=== PATIENT | female | born 1935 | race Caucasian/White ===

== ENCOUNTER 2023-05-17 21:37 | Inpatient (IN) | payer OTHER, SELFPAY ==
[2023-05-17 15:00] VITALS: BP 125/87
[2023-05-17 15:35] LABS: % Basophils 0.3 % (0-2); % Immature Granulocytes 0.2 % (0-0.5); % Lymphocytes 9.2 % (20.5-51.1); % Neutrophils 83.3 % (42.2-75.2); Absolute Lymphocytes 0.6 10^3/uL (1.2-3.4); Absolute Monocytes 0.4 10^3/uL (0.1-0.6); Absolute Neutrophils 5.2 10^3/uL (1.4-6.5); Hematocrit 41.1 % (37.0-47.0); Hemoglobin 13.9 g/dL (12.0-16.0); Mean Corp Hgb Conc. 33.8 g/dL (33.0-37.0); Mean Corpuscular Hgb 30.8 pg (27.0-31.0); Mean Corpuscular Volume 90.9 fL (81.0-99.0); Mean Platelet Volume 9.8 fL (7.4-10.4); Nucleated Red Blood Cells % 0 %; Platelet Count 141 10^3/uL (130-400); Red Blood Cell Count 4.52 10^6/uL (4.20-5.40); Red Cell Dist. Width 13.9 % (11.5-14.5); White Blood Cell Count 6.3 10^3/uL (4.8-10.8)
[2023-05-17 15:44] LABS: ALT (SGPT) 20 U/L (0-35); AST (SGOT) 29 U/L (14-36); Albumin 3.6 g/dl (3.5-5.0); Alkaline Phosphatase 94 U/L (38-126); Blood Urea Nitrogen 17 mg/dl (7-17); Calcium 8.7 mg/dl (8.4-10.2); Carbon Dioxide 27 mmol/L (22-30); Chloride 104 mmol/L (98-107); Glucose 278 mg/dl (70-99); Potassium 4.2 mmol/L (3.5-5.1); Sodium 137 mmol/L (135-145); Total Bilirubin 0.9 mg/dl (0.2-1.3); eGFR > 60.00
[2023-05-17 15:55] LABS: NT-proBNP 2380 pg/ml; Troponin I 0.026 ng/ml
[2023-05-17 18:11] VITALS: BP 132/76
[2023-05-17] MEDS: DECADRON 6 MG IV (19:04)
[2023-05-17] MEDS: DUONEB 3 ML INH (19:04)
--- NOTE | 2023-05-17 19:10 | ED.GENMED ---
History of Present Illness
General
Chief Complaint: Breathing Problem
Source: patient and spouse
Exam Limitations: none
Time Seen by Provider: 05/17/23 18:13
Travel History
Have you had any contact with someone who has COVID-19?: No
Do you have any symptoms of coronavirus? Fever > 100 degrees, chills, cough, shortness of breath, sore throat, loss of taste or smell, muscle aches, or headache?: No
History of Present Illness
History of Present Illness:
87-year-old female increase shortness of breath and cough progressive over the last week. returned from [place] with some cough. However symptoms are progressively worse for his . No pleuritic pain no high fever. Shortness of breath
is moderate in nature
Past History
Past History
ED Past Medical History: Arrthythmia (Atrial fibrillation), Valvular disease (Valvular heart disease) and Other (PNA)
ED Past Surgical History: Appendectomy
Social History
Tobacco: Non-smoker
Alcohol: None
Personal:
Living: with family
Review of Systems
Review of Systems
All Other Systems: Not applicable
Constitutional: Denies fever
Respiratory: Reports cough; Denies hemoptysis
ABD/GI: Reports no symptoms
Phy Exam
Physical Exam
Physical Exam:
GENERAL: Alert and oriented in no apparent distress
EYE: Orbits normal.
NECK: Supple
ENT: Pharynx without erythema
CARDIAC: Irregular irregular. Tachycardic
LUNGS: Occasional coarse cough. Diffuse expiratory wheezing and basilar rales.
ABDOMEN: Soft, without focal tenderness or distention
NEUROLOGICAL: Alert and oriented , grossly non-focal
SKIN: Warm and dry, no rash or lesion, no discoloration, skin intact.
MUSCULOSKELETAL: No edema,no deformity.Good color
PSYCH: Normal and appropriate interaction.
Scores
Heart Failure Risk
Heart Failure Risk Score: Yes
History of Stroke or TIA: No
History of intubation for respiratory distress: No
Heart rate on ED arrival >/= 110: Yes
SaO2 <90% on arrival on room air: No
HR >/=110 during 3min walk test (or too ill to perform test): Yes
ECG has acute ischemic changes: No
Urea >/=12mmol/L (BUN 33.6mg/dL): No
Serum CO2>/=35mmol/L: No
Troponin I or T elevated to [place] Level (0.4mg/dL): No
NT-proBNP >/=5,000ng/L (5,000pg/ml): No
HF Risk Score: 2
Admission Status: MEDIUM RISK 9.2% Consider observation or discharge to home with homecare & f/u visit to PCP/Coin Machine Supervisor, or SNF for treatment
Course
Orders/Labs/Results
Orders:
Orders
05/17/23 15:02
Electrocardiogram (*1) Urgent
Reason for Study: Shortness of Breath
05/17/23 15:03
EKG- Treatment ONCE
05/17/23 15:18
CMP [Comprehensive Metabolic Panel] Urgent
Complete Blood Count/With Diff Urgent
NT-proBNP Urgent
Troponin I Urgent
05/17/23 18:23
COVID-19 Antigen Urgent
Source: Nasal Swab
Influenza A+B Rapid Molecular Urgent
SALIMA Source: Nasal Swab
Specimen Description:
Dexamethasone Sod Phosphate [Decadron] 6 mg IV NOW STA
Ipratropium/Albuterol Sulfate [Duoneb] 3 ml INH R NOW ONE
CXR2 [CR Chest - 2 Views ] Urgent
Comment:
Reason For Exam: cough sob
05/17/23 19:20
Furosemide [Lasix] 40 mg IV ONCE ONE
Abnormal Lab Results
05/17/23
15:18
Absolute Lymphs (auto) 0.6 L 10^3/uL
(1.2-3.4)
Neutrophils % 83.3 H %
(42.2-75.2)
Lymphocytes % 9.2 L %
(20.5-51.1)
Glucose 278 H mg/dl
(70-99)
05/17/23 15:18
05/17/23 15:18
Vital Signs
Initial and Last Documented VS:
Initial Vital Signs
Temp Pulse Resp BP Pulse Ox
98.9 F 114 16 125/87 94
05/17/23 15:00 05/17/23 15:00 05/17/23 15:00 05/17/23 15:00 05/17/23 15:00
Last Documented Vital Signs
Temp Pulse Resp BP Pulse Ox
98.9 F 114 20 132/76 94
05/17/23 15:00 05/17/23 15:00 05/17/23 18:12 05/17/23 18:11 05/17/23 18:12
*Radiology
Radiology exam reviewed: radiology read reviewed (Possible mild CHF)
*Pulse Oximetry
Patient hypoxic: no
*EKG
Interpreted by ED Provider?: Yes
Interpretation: abnormal
Comparison EKG: changes noted
Heart Rate: 119
Rate: tachycardiac
Rhythm: a-fib
[place]: normal axis
Interval: normal interval
QRS Pattern: low voltage
Ischemia: non-specific ST changes
*Forest Technician Interpretation
Rate: tachycardiac
Interpretation: abnormal
Heart Rate: 115
*Critical Care Note
Total Time (30-74mins, 75-104mins- exclusive of procedures): Not Applicable
Data Reviewed
Review of Other/Old Records Reveals: Labs, Records, Testing and Discharge Summary
Update Note
Update Note:
Patient still with diffuse expiratory wheezing and mild tachypnea at rest. I feel this is mostly a respiratory infection but there may be a small component of CHF. Warrants inpatient management.
ED Attending Note
-
Portions of this chart may have been created with voice recognition software.� Occasional wrong word or��sound alike� substitutions may have occurred due to the inherent limitations of voice recognition software.
Discharge Plan
Departure
Prescriptions:
No Action
atorvastatin 40 MG tablet
40 mg PO QPM Qty: 30 0RF
metformin 500 MG tablet
500 mg PO BID@0800,1700 Qty: 60 0RF
acetaminophen 325 MG tablet
650 mg PO Q4HPRN PRN (Reason: mild pain) 0RF
metoprolol succinate 100 MG tablet extended release 24 hr
100 mg PO BID Qty: 60 0RF
thiamine HCl (vitamin B1) 100 MG tablet
100 mg PO DAILY Qty: 30 0RF
pantoprazole 40 MG tablet,delayed release (DR/EC)
40 mg PO DAILY Qty: 30 0RF
digoxin 0.125 MG tablet
0.125 mg PO NOON Qty: 30 0RF
furosemide 20 MG tablet
20 mg PO DAILY Qty: 30 0RF
lisinopril 2.5 MG tablet
2.5 mg PO BID Qty: 60 0RF
insulin aspart U-100 [Novolog FlexPen U-100 Insulin] 300 UNITS/3 ML insulin pen
5 units SC AC Qty: 5 0RF
apixaban [Eliquis] 5 MG tablet
5 mg PO BID Qty: 60 0RF
dapagliflozin propanediol [Farxiga] 10 MG tablet
10 mg PO DAILY Qty: 30 0RF
insulin glargine [Lantus Solostar U-100 Insulin] 300 UNITS/3 ML insulin pen
14 units SC HS Qty: 5 0RF
(DME) pen needle, diabetic [BD Ultra-Fine Micro Pen Needle] 1 EACH needle
1 ea MC ACHS Qty: 200 0RF
Rx Instructions:
BD ALBERTA 4mm pen needle
(DME) blood sugar diagnostic [OneTouch Verio test strips] 1 EACH strip
1 ea MC ACHS Qty: 200 0RF
(DME) lancets [OneTouch Delica Lancets] 1 EACH misc
1 ea MC ACHS Qty: 200 0RF
Referrals:
Alexa Ballard MD [Family Provider] -
Interventions
Interventions:
*ED COVID-19 Vaccine History Last Done: 05/17/23 15:00
[2023-05-17] MEDS: LASIX 40 MG IV (20:09)
--- NOTE | 2023-05-17 20:16 | HPS.HSE ---
Family Physician
-
Family Physician: Alexa Ballard
Chief Complaint
-
Cough / SOB
History of Present Illness
Patient is an 87y F with PMH significant for A-Fib, CHF and DM-II who presents to ED complaining of cough and SOB. Patient states that symptoms have been progressive over the past week or so. Her at the bedside note that he has had a
cough / respiratory illness for the past 2-3 weeks. He was recently away on a trip to [place] and returned last Wednesday. He states that patient's cough started soon after. She has paroxysms of cough that is non-productive. Pos SOB with coughing or
with activity. Patient reports discomfort in the LUQ / left lower chest area occasionally. She denies fevers or chills, but has intermittent diaphoresis.
Patient states that she weighs herself at home and her weight has no significantly changed lately. She denies any increase in lower extremity edema.
Patient and her took COVID-19 tests at home today and they were reportedly negative.
Medical History
Past Medical History
Past Medical History: Reports Other
Additional Past Medical History:
Permanent Atrial Fibrillation
Chronic HFpEF
DM-II
Hypertension
Lumbar Spinal Stenosis
Past Surgical History: Reports Other
Additional Past Surgical History:
Appendectomy
Social History
Tobacco: Non-smoker
Alcohol: Daily (1 drink daily)
Drug: None
Personal:
Living: With Family
Family History
Family History: Not pertinent
Allergies / Home Medications
Allergies reflects when Allergies were last updated in [facility].
Home Medications with original date entered in [facility]
Allergy/Medication List:
Allergies
Allergy/AdvReac Type Severity Reaction Status Date / Time
Penicillins Allergy Unknown Verified 05/17/23 15:02
Home Medications
apixaban 5 mg tablet (Eliquis) 5 mg PO BID #60 tabs 10/13/20
metformin 500 mg tablet 500 mg PO BID@0800,1700 #60 tabs 10/13/20
metoprolol succinate 100 mg tablet,extended release 24 hr 100 mg PO BID #60 tabs 10/13/20
thiamine HCl (vitamin B1) 100 mg tablet 100 mg PO DAILY #30 tabs 10/13/20
naproxen sodium 220 mg tablet (Aleve) 440 mg PO DAILY PRN mild pain 05/17/23
valsartan 160 mg tablet 160 mg PO DAILY 05/17/23
Review of Systems
-
History Source: Patient
A 12 point ROS was completed and negative except as noted: Yes
Constitutional: Reports Fatigue; Denies Fever or Chills
EENT: Denies Sore Throat or Runny Nose
Respiratory: Reports Cough and Trouble Breathing
Cardiac: Reports Chest Pain and Diaphoresis; Denies Palpitations or Syncope
Abdomen/GI: Denies Abdominal Pain, Nausea, Vomiting or Diarrhea
: Denies Dysuria, Frequency or Flank Pain
Neurological: Denies Dizzy or Headache
Psych: Denies Depression or Anxiety
Physical Exam
Vital Signs
Vital Signs
Temp Pulse Resp BP Pulse Ox
98.9 F 114 20 132/76 94
05/17/23 15:00 05/17/23 15:00 05/17/23 18:12 05/17/23 18:11 05/17/23 18:12
Physical Exam
General: Other (87y F in no acute distress.)
HEENT: Moist mucous membranes and PERRLA
Respiratory: Other (Coarse breath sounds scattered throughout. Expiratory wheezes bilaterally. No rales.)
Cardiac: S1/S2, Irregular Rhythm and Murmur (II/ THELMA)
GI: Soft, Non Tender, Non Distended and Normal Bowel Sounds
Musculoskeletal: No Clubbing, No Cyanosis and No Edema
Neuro: AO x 3
Laboratory Results
-
05/17/23 15:18
05/17/23 15:18
Laboratory Results
Total Bilirubin 0.9 mg/dl (0.2-1.3) 05/17/23 15:18
AST 29 U/L (14-36) 05/17/23 15:18
ALT 20 U/L (0-35) 05/17/23 15:18
Alkaline Phosphatase 94 U/L (38-126) 05/17/23 15:18
Troponin I 0.026 ng/ml 05/17/23 15:18
Impression/Plan
-
A/P: Patient is an 87y F with PMH significant for DM-II, hypertension and CHF who presents to ED complaining of cough and SOB.
Acute Bronchitis with Bronchospasm
- Admit for further evaluation and treatment.
- Patient is afebrile, no leukocytosis and no evident infiltrate on CXR.
- Suspect viral bronchitis.
- Supportive care with nebs, mucolytics, steroids, etc.
- Follow for clinical improvement.
- COVID and influenza in the ED are negative.
Permanent Atrial Fibrillation
- Stable. Continue current med regimen including Eliquis for stroke risk reduction.
Chronic HFpEF
- Stable. No recent weight gain, increased edema, etc.
- Follow I/Os, daily weights, etc.
- Consider dosing of Lasix as needed.
- Patient is apparently not on chronic diuretic therapy as an outpatient.
Benign Hypertension
- Stable. Continue current medications with holding parameters.
DM-II
- Stable. Continue metformin.
- Monitor glucose and cover with SSI.
- Update A1C.
DVT Prophylaxis: On Eliquis
Code Status: Full
[2023-05-17 20:39] LABS: COVID-19 Antigen Negative (Negative)
[2023-05-17 22:30] VITALS: BP 137/86
[2023-05-17 22:37] LABS: Glucose - Point of Care 385 mg/dl (70-99)
[2023-05-17 23:06] VITALS: BMI 32.0
[2023-05-17 23:08] VITALS: BMI 32.0
[2023-05-17 23:34] LABS: Troponin I 0.022 ng/ml
[2023-05-17] MEDS: NOVOLOG FLEXPEN 10 UNITS SC (23:34)
[2023-05-17] MEDS: TOPROL XL 100 MG PO (23:36)
[2023-05-18 02:01] LABS: Glucose - Point of Care 345 mg/dl (70-99)
[2023-05-18 02:53] VITALS: BP 138/98
[2023-05-18] MEDS: NOVOLOG FLEXPEN 10 UNITS SC (03:17)
[2023-05-18 04:50] LABS: Hematocrit 40.4 % (37.0-47.0); Hemoglobin 13.5 g/dL (12.0-16.0); Mean Corp Hgb Conc. 33.4 g/dL (33.0-37.0); Mean Corpuscular Volume 92.7 fL (81.0-99.0); Mean Platelet Volume 10.2 fL (7.4-10.4); Platelet Count 143 10^3/uL (130-400); Red Blood Cell Count 4.36 10^6/uL (4.20-5.40); Red Cell Dist. Width 13.5 % (11.5-14.5)
[2023-05-18 05:13] LABS: Troponin I 0.017 ng/ml
[2023-05-18 05:17] LABS: Blood Urea Nitrogen 24 mg/dl (7-17); Calcium 8.8 mg/dl (8.4-10.2); Carbon Dioxide 26 mmol/L (22-30); Chloride 101 mmol/L (98-107); Estimated Creatinine Clearance 52 ml/min; Glucose 257 mg/dl (70-99); Potassium 4.1 mmol/L (3.5-5.1); Sodium 139 mmol/L (135-145); eGFR > 60.00
[2023-05-18 05:44] LABS: Glucose - Point of Care 199 mg/dl (70-99)
[2023-05-18 06:00] VITALS: BMI 31.5
[2023-05-18 08:13] LABS: Glucose - Point of Care 182 mg/dl (70-99)
[2023-05-18 08:14] VITALS: BP 147/97
[2023-05-18] MEDS: TOPROL XL 100 MG PO ×2 (08:40→20:25)
[2023-05-18] MEDS: DELTASONE 40 MG PO (08:40)
[2023-05-18] MEDS: ELIQUIS 5 MG PO ×2 (08:40→20:25)
[2023-05-18] MEDS: GLUCOPHAGE 500 MG PO ×2 (08:41→17:56)
[2023-05-18] MEDS: MUCINEX 600 MG PO ×2 (08:41→20:25)
[2023-05-18] MEDS: LASIX PO ×2 (08:41→08:52)
[2023-05-18] MEDS: DIOVAN 160 MG PO (08:41)
--- NOTE | 2023-05-18 08:52 | PTCARENOTE ---
pt refused lasix. initally said she would take it, then when pill cup was presented to her; 'The piss pill isn't in there is it?' This nurse confirmed that it was and read AM medication list for a second time. Pt says 'I don't want to take the piss
pill but you can say that I did so you get paid by my insurance.'...confused by this- further questioning if pt does or does not want to take Lasix. pt replies: 'You can document that I took it but I do not want to take the piss pill. it's just so
they can get money- an insurance thing.' This nurse documents refusal and removed lasix. Pt disconnected cotton agent. This nurse stated she needs to wear it. pt replies 'well don't count on me being here long' cotton agent reconnected. pt
states 'I like cruise ships, not hospitals. 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
[2023-05-18] MEDS: NOVOLOG FLEXPEN-LOW RESISTANCE SC ×2 (10:03→15:04)
--- NOTE | 2023-05-18 10:03 | PTCARENOTE ---
pt refused insulin 'It is on my list of medications I am supposed to take but it is the most expensive, and in my opinion useless'
[2023-05-18 10:20] LABS: Glycohemoglobin (HgbA1c) 8.9 % (4.0-5.6)
[2023-05-18 10:25] LABS: Troponin I 0.013 ng/ml
[2023-05-18 11:58] VITALS: BP 124/73
[2023-05-18 12:38] LABS: Glucose - Point of Care 274 mg/dl (70-99)
--- NOTE | 2023-05-18 13:01 | W.PN.HOSP.TC ---
Today's Communication/Plan
-
Monitor vital signs and see plan
Continue with Lasix, steroids
Echo today
Based on echo will likely need cardiology evaluation
Assessment / Plan
Assessment / Plan
General: Other (87y F in no acute distress.)
HEENT: Moist mucous membranes and PERRLA
Respiratory: Other (Coarse breath sounds scattered throughout.� Expiratory wheezes bilaterally.� No rales.)
Cardiac: S1/S2, Irregular Rhythm and Murmur (II/ THELMA)
GI: Soft, Non Tender, Non Distended and Normal Bowel Sounds
Musculoskeletal: No Clubbing, No Cyanosis and No Edema
Neuro: AO x 3
Acute Bronchitis with Bronchospasm
�- Admit for further evaluation and treatment.
�- Patient is afebrile, no leukocytosis and no evident infiltrate on CXR.
�- Suspect viral bronchitis.
�- Supportive care with nebs, mucolytics, steroids, etc.
�- Follow for clinical improvement.
�- COVID and influenza in the ED are negative.
Permanent Atrial Fibrillation
�- Stable.� Continue current med regimen including Eliquis for stroke risk reduction.
Acute on Chronic HFrEF
�- cw lasix
xray with some pulmonary edema
echo in 2020 was EF was 41% with mild CAD
patient appears noncompliant with her medical management. Currently is not following up with cardiology but used to follow up.
�- Patient is apparently not on chronic diuretic therapy as an outpatient.
Benign Hypertension
�- Stable.� Continue current medications with holding parameters.
DM-II
�- Stable.� Continue metformin.
�- Monitor glucose and cover with SSI.
�- A1C 8.9
DVT Prophylaxis:� On Eliquis
Code Status:� Full
Anticipated Discharge: 24 - 48 hours
Subjective/Interval History
-
Date of Service: May 18, 2023
denies chest pain
Objective Data
-
Labs:
Laboratory Results
05/18/23
04:31
WBC 5.0
Hgb 13.5
Hct 40.4
Plt Count 143
Sodium 139
Potassium 4.1
Chloride 101
Carbon Dioxide 26
BUN 24 H
Creatinine 0.9
Glucose 257 H
Calcium 8.8
Vital Signs:
Vital Signs
Temp Pulse Resp BP Pulse Ox
98.0 F 98 18 124/73 98
05/18/23 11:58 05/18/23 11:58 05/18/23 11:58 05/18/23 11:58 05/18/23 11:58
--- NOTE | 2023-05-18 13:17 | PTCARENOTE ---
pt again refusing insulin. this nurse attempted to educate RE: high A1c and glucose. Pt insists 'it's the stuff you are giving me it is no good' pt states bozena usually works great for her, asking 'Don't you have some kind of alternative?' attending
notified
--- NOTE | 2023-05-18 13:32 | CM ---
Reviewed chart, met with patient to obtain information for assessment. Patient stated that she lives with her spouse of 40 years in a two story home with one step to enter.
Patient described herself as independent with her ADLs, personal care, dressing, bathing and toileting. She uses a walker for long distances but denied any other DME in her home (except for 2 canes). 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
She used to work as a Deli Cook. Patient does not drive however her spouse is available to take her to work, shopping and appointments.
Patient confirmed that she can do all her rate examiner, cook, clean and do laundry.
She has a prescription plan and uses [facility] pharmacy in [place] for all her medications.
Her PCP is Dr. Alexa Bernardo
Patient does not feel that she will have any needs at time of discharge. She has never had VN services or been to a SNF. She stated that she would like to return home upon medical clearance.
Plan: Case management will continue to follow and assist with discharge planning. Patient would like to return home when medically cleared for discharge.
[2023-05-18 14:46] LABS: Glucose - Point of Care 303 mg/dl (70-99)
[2023-05-18 15:00] VITALS: BP 159/85
[2023-05-18] MEDS: ATROVENT NEBULES 0.5 MG INH ×2 (15:25→19:19)
[2023-05-18] MEDS: XOPENEX 1.25 MG INHALANT SOLUTION INH ×2 (15:25→19:19)
[2023-05-18 17:07] LABS: Glucose - Point of Care 295 mg/dl (70-99)
[2023-05-18] MEDS: NOVOLOG FLEXPEN-LOW RESISTANCE 3 UNITS SC (17:57)
[2023-05-18 20:10] VITALS: BP 137/84
[2023-05-18 21:24] LABS: Glucose - Point of Care 360 mg/dl (70-99)
[2023-05-18] MEDS: NOVOLOG FLEXPEN 15 UNITS SC (21:54)
[2023-05-18 23:30] VITALS: BP 139/74
[2023-05-18 23:46] LABS: Glucose - Point of Care 215 mg/dl (70-99)
[2023-05-19 02:40] VITALS: BP 119/71
[2023-05-19 07:00] VITALS: BP 118/66
[2023-05-19 07:03] LABS: % Basophils 0.3 % (0-2); % Immature Granulocytes 0.4 % (0-0.5); % Lymphocytes 17.4 % (20.5-51.1); % Monocytes 10.1 % (1.7-9.3); % Neutrophils 71.8 % (42.2-75.2); Absolute Lymphocytes 1.4 10^3/uL (1.2-3.4); Absolute Monocytes 0.8 10^3/uL (0.1-0.6); Absolute Neutrophils 5.7 10^3/uL (1.4-6.5); Hematocrit 41.3 % (37.0-47.0); Mean Corp Hgb Conc. 33.9 g/dL (33.0-37.0); Mean Corpuscular Hgb 30.5 pg (27.0-31.0); Mean Platelet Volume 10.2 fL (7.4-10.4); Nucleated Red Blood Cells % 0 %; Platelet Count 162 10^3/uL (130-400); Red Blood Cell Count 4.59 10^6/uL (4.20-5.40); Red Cell Dist. Width 13.8 % (11.5-14.5); White Blood Cell Count 7.9 10^3/uL (4.8-10.8)
--- NOTE | 2023-05-19 07:16 | PTCARENOTE ---
Patient refusing yo stand on scale and get weighed. This RN explained to patient that it is very important with CHF to track weight especially since she refused her Lasix yesterday. Patient verbalized an understanding of teaching but continued to
refuse.
[2023-05-19 07:26] LABS: Blood Urea Nitrogen 29 mg/dl (7-17); Carbon Dioxide 27 mmol/L (22-30); Chloride 102 mmol/L (98-107); Estimated Creatinine Clearance 58 ml/min; Glucose 142 mg/dl (70-99); Potassium 3.9 mmol/L (3.5-5.1); Sodium 139 mmol/L (135-145); eGFR > 60.00
[2023-05-19] MEDS: XOPENEX 1.25 MG INHALANT SOLUTION INH ×3 (07:55→19:56)
[2023-05-19] MEDS: ATROVENT NEBULES 0.5 MG INH ×3 (07:55→19:56)
[2023-05-19 08:12] LABS: Glucose - Point of Care 118 mg/dl (70-99)
[2023-05-19] MEDS: LASIX 40 MG PO (08:16)
[2023-05-19] MEDS: MUCINEX 600 MG PO ×2 (08:16→20:11)
[2023-05-19] MEDS: DELTASONE 40 MG PO (08:17)
[2023-05-19] MEDS: TOPROL XL 100 MG PO ×2 (08:17→20:10)
[2023-05-19] MEDS: GLUCOPHAGE 500 MG PO ×2 (08:17→17:00)
[2023-05-19] MEDS: ELIQUIS 5 MG PO ×2 (08:18→20:11)
[2023-05-19] MEDS: DIOVAN 160 MG PO (08:18)
[2023-05-19] MEDS: NOVOLOG FLEXPEN-LOW RESISTANCE SC (09:01)
[2023-05-19] MEDS: PROTONIX 40 MG PO (09:25)
--- NOTE | 2023-05-19 10:47 | W.PN.HOSP.TC ---
Today's Communication/Plan
-
monitor vitals
see plan
not compliant at times and not cooperating
lasix,steroids
dc today
Assessment / Plan
Assessment / Plan
General: Other (87y F in no acute distress.)
HEENT: Moist mucous membranes and PERRLA
Respiratory: Other (Coarse breath sounds scattered throughout.� Expiratory wheezes bilaterally.� No rales.)
Cardiac: S1/S2, Irregular Rhythm and Murmur (II/ THELMA)
GI: Soft, Non Tender, Non Distended and Normal Bowel Sounds
Musculoskeletal: No Clubbing, No Cyanosis and No Edema
Neuro: AO x 3
Acute Bronchitis with Bronchospasm
�- Patient is afebrile, no leukocytosis and no evident infiltrate on CXR.
�- Suspect viral bronchitis.
�- Supportive care with nebs, mucolytics, steroids, etc. will give prednisone with taper on dc and inhaler
�- Follow for clinical improvement.
�- COVID and influenza in the ED are negative.
Permanent Atrial Fibrillation
�- Stable.� Continue current med regimen including Eliquis for stroke risk reduction.
Acute on Chronic HFpEF
�- cw lasix; patient refusing at times; spoke with patient and will likely dc her since she is refusing management. She is agreeable to f/u with per pcp
xray with some pulmonary edema
echo in 2020 was EF was 41% with mild CAD; echo 05/18 with preserved EF
patient appears noncompliant with her medical management. Currently is not following up with cardiology but used to follow up.
�- Patient is apparently not on chronic diuretic therapy as an outpatient.
Benign Hypertension
�- Stable.� Continue current medications with holding parameters.
DM-II
�- Stable.� Continue metformin.
�- Monitor glucose and cover with SSI.
�- A1C 8.9
DVT Prophylaxis:� On Eliquis
Code Status:� Full
Anticipated Discharge: Today
Subjective/Interval History
-
Date of Service: May 19, 2023
refusing meds at times
Objective Data
-
Labs:
Laboratory Results
05/19/23
06:31
WBC 7.9
Hgb 14.0
Hct 41.3
Plt Count 162
Sodium 139
Potassium 3.9
Chloride 102
Carbon Dioxide 27
BUN 29 H
Creatinine 0.8
Glucose 142 H
Calcium 9.0
Vital Signs:
Vital Signs
Temp Pulse Resp BP Pulse Ox
97.4 F 105 18 118/66 93
05/19/23 07:00 05/19/23 08:16 05/19/23 07:57 05/19/23 08:16 05/19/23 07:57
I&O
05/18/23 05/19/23 05/20/23
06:59 06:59 06:59
Intake Total 540 / 540
Balance 540 / 540
[2023-05-19 11:00] VITALS: BP 115/73
[2023-05-19 12:14] LABS: Glucose - Point of Care 200 mg/dl (70-99)
[2023-05-19] MEDS: NOVOLOG FLEXPEN-LOW RESISTANCE 2 UNITS SC (13:00)
[2023-05-19 15:00] VITALS: BP 138/68
[2023-05-19 16:51] LABS: Glucose - Point of Care 319 mg/dl (70-99)
[2023-05-19] MEDS: NAPROSYN 500 MG PO (16:56)
[2023-05-19] MEDS: NOVOLOG FLEXPEN-LOW RESISTANCE 4 UNITS SC (17:02)
[2023-05-19 19:00] VITALS: BP 147/85
[2023-05-19 21:41] LABS: Glucose - Point of Care 374 mg/dl (70-99)
[2023-05-19 23:11] VITALS: BP 133/74
[2023-05-20 03:40] VITALS: BP 150/98
[2023-05-20 07:37] LABS: % Basophils 0.2 % (0-2); % Immature Granulocytes 0.3 % (0-0.5); % Lymphocytes 24.3 % (20.5-51.1); % Monocytes 12.8 % (1.7-9.3); % Neutrophils 62.4 % (42.2-75.2); Absolute Lymphocytes 1.5 10^3/uL (1.2-3.4); Absolute Monocytes 0.8 10^3/uL (0.1-0.6); Absolute Neutrophils 3.8 10^3/uL (1.4-6.5); Hemoglobin 13.3 g/dL (12.0-16.0); Mean Corp Hgb Conc. 34.1 g/dL (33.0-37.0); Mean Corpuscular Hgb 30.4 pg (27.0-31.0); Mean Corpuscular Volume 89.2 fL (81.0-99.0); Mean Platelet Volume 9.6 fL (7.4-10.4); Nucleated Red Blood Cells % 0 %; Platelet Count 163 10^3/uL (130-400); Red Blood Cell Count 4.37 10^6/uL (4.20-5.40); Red Cell Dist. Width 13.7 % (11.5-14.5); White Blood Cell Count 6.1 10^3/uL (4.8-10.8)
[2023-05-20 07:40] LABS: Blood Urea Nitrogen 31 mg/dl (7-17); Carbon Dioxide 28 mmol/L (22-30); Chloride 102 mmol/L (98-107); Estimated Creatinine Clearance 51 ml/min; Glucose 251 mg/dl (70-99); Potassium 4.6 mmol/L (3.5-5.1); Sodium 136 mmol/L (135-145); eGFR > 60.00
[2023-05-20] MEDS: ATROVENT NEBULES 0.5 MG INH (07:40)
[2023-05-20] MEDS: XOPENEX 1.25 MG INHALANT SOLUTION INH ×2 (07:40→13:47)
[2023-05-20 07:56] VITALS: BP 118/71
[2023-05-20] MEDS: DIOVAN 160 MG PO (08:01)
[2023-05-20] MEDS: GLUCOPHAGE 500 MG PO (08:02)
[2023-05-20] MEDS: LASIX 40 MG PO (08:02)
[2023-05-20] MEDS: PROTONIX 40 MG PO (08:02)
[2023-05-20] MEDS: DELTASONE 40 MG PO (08:02)
[2023-05-20] MEDS: TOPROL XL 100 MG PO (08:02)
[2023-05-20] MEDS: ELIQUIS 5 MG PO (08:02)
[2023-05-20] MEDS: MUCINEX 600 MG PO (08:05)
[2023-05-20 08:18] VITALS: BP 146/72
[2023-05-20 08:44] LABS: Glucose - Point of Care 199 mg/dl (70-99)
[2023-05-20] MEDS: NOVOLOG FLEXPEN-LOW RESISTANCE SC ×2 (09:54→12:53)
--- NOTE | 2023-05-20 10:39 | W.PN.HOSP.TC ---
Today's Communication/Plan
-
Monitor vital signs see plan
Continue with Lasix
Will discharge with prednisone and inhaler
Time of discharge 36 minutes
Assessment / Plan
Assessment / Plan
General: Other (87y F in no acute distress.)
HEENT: Moist mucous membranes and PERRLA
Respiratory: Other (Coarse breath sounds scattered throughout.� Expiratory wheezes bilaterally.� No rales.)
Cardiac: S1/S2, Irregular Rhythm and Murmur (II/ THELMA)
GI: Soft, Non Tender, Non Distended and Normal Bowel Sounds
Musculoskeletal: No Clubbing, No Cyanosis and No Edema
Neuro: AO x 3
Acute Bronchitis with Bronchospasm
�- Patient is afebrile, no leukocytosis and no evident infiltrate on CXR.
�- Suspect viral bronchitis.
�- Supportive care with nebs, mucolytics, steroids, etc. will give prednisone with taper on dc and inhaler
�- Follow for clinical improvement.
�- COVID and influenza in the ED are negative.
Permanent Atrial Fibrillation
�- Stable.� Continue current med regimen including Eliquis for stroke risk reduction.
Acute on Chronic HFpEF
�- cw lasix; patient refusing at times; spoke with patient and will likely dc her since she is refusing management. She is agreeable to f/u with per pcp
xray with some pulmonary edema
echo in 2020 was EF was 41% with mild CAD; echo 05/18 with preserved EF
patient appears noncompliant with her medical management. Currently is not following up with cardiology but used to follow up.
�- Patient is apparently not on chronic diuretic therapy as an outpatient. now started lasix
Benign Hypertension
�- Stable.� Continue current medications with holding parameters.
DM-II
�- Stable.� Continue metformin.
�- Monitor glucose and cover with SSI.
�- A1C 8.9
DVT Prophylaxis:� On Eliquis
Code Status:� Full
Anticipated Discharge: Today
Subjective/Interval History
-
Date of Service: May 20, 2023
denies pain
Objective Data
-
Labs:
Laboratory Results
05/20/23
06:59
WBC 6.1
Hgb 13.3
Hct 39.0
Plt Count 163
Sodium 136
Potassium 4.6
Chloride 102
Carbon Dioxide 28
BUN 31 H
Creatinine 0.9
Glucose 251 H
Calcium 9.0
Vital Signs:
Vital Signs
Temp Pulse Resp BP Pulse Ox
97.8 F 88 18 146/72 95
05/20/23 08:18 05/20/23 08:18 05/20/23 08:18 05/20/23 08:18 05/20/23 08:18
I&O
05/19/23 05/20/23 05/21/23
06:59 06:59 06:59
Intake Total 540 / 540 830 / 830
Balance 540 / 540 830 / 830
--- NOTE | 2023-05-20 10:44 | W.DCSUMMARY ---
Discharge Summary
Discharge Data
Date of Admission: 05/17/23
Date of Discharge: 05/20/23
-
Pending Results: No
Hospital Course
87-year-old female with past medical history of type 2 diabetes mellitus, hypertension, CHF came to the hospital with shortness of breath with acute bronchitis. It was determined that patient bronchitis is likely viral in nature. Patient at times
was noncompliant with her management. Echocardiogram was done which showed EF of 50%. Chest x-ray was consistent with pulmonary edema. Patient was started on Lasix. Patient did not wanted to follow-up with cardiology. Influenza and COVID both
were negative. Once patient breathing improved she was then discharged home with close follow-up with all her physicians outpatient.
Discharge Plan
-
Patient Disposition: Home (Routine Discharge)
Discharge Diagnosis/Procedures: Acute viral bronchitis
Pulmonary defibrillation
Acute on chronic congestive heart failure with preserved ejection fraction
Diet: As tolerated and No added salt
Activity: As tolerated
Driving Restrictions: As prior to admission
Bathing Restrictions: None
Blood Work: BMP next week with primary care provider provider
Specialty Instructions: Weigh Daily- Call MD for wt gain/loss 3 lbs overnight/5 lbs in 1 week
Referrals:
Alexa Ballard MD [Family Provider] - in less than 1 week
Prescriptions:
New
furosemide 40 mg Tablet
40 mg PO DAILY Qty: 30 0RF
acetaminophen 325 mg Tablet
650 mg PO Q4HPRN PRN (Reason: Mild Pain / Temp > 101) Qty: 0 0RF
pantoprazole 40 mg Tablet,Delayed Release (Dr/Ec)
40 mg PO DAILY Qty: 30 0RF
guaifenesin 600 mg Tablet Extended Release 12hr
600 mg PO Q12 Qty: 14 0RF
prednisone 10 mg Tablet
See Rx Instructions .ROUTE .COMPLEX Qty: 18 0RF
Rx Instructions:
Take By Mouth:
30 mg daily x3 days,
20 mg daily x3 days, 10 mg daily x3 days.
Continued
metformin 500 MG tablet
500 mg PO BID@0800,1700 Qty: 60 0RF
metoprolol succinate 100 MG tablet extended release 24 hr
100 mg PO BID Qty: 60 0RF
thiamine HCl (vitamin B1) 100 MG tablet
100 mg PO DAILY Qty: 30 0RF
Eliquis 5 MG tablet
5 mg PO BID Qty: 60 0RF
naproxen sodium [Aleve] 220 mg Tablet
440 mg PO DAILY PRN (Reason: mild pain)
Patient Comments:
05/17/2023: Pt either takes in the morning, or in the afternoon depending how her pain is.
valsartan 160 mg tablet
160 mg PO DAILY
Discharge Orders:
Discharge Patient (As Directed); Ordered 05/20/23
Ordered By: Paco Cortez
Discharge Date and Time
Discharge Date/Time: 05/20/23 15:58
[2023-05-20 12:01] VITALS: BP 103/54
[2023-05-20 12:31] LABS: Glucose - Point of Care 218 mg/dl (70-99)
[2023-05-20] MEDS: ATROVENT NEBULES INH (13:46)
== END 2023-05-20 15:58 | disposition home or self-care (01) | DRG 291 ==
LOC: 3 WEST ACU 21:37
PROVIDERS: ADMITTING PHYSICIAN Hospitalist; ATTENDING PHYSICIAN Internal Medicine; EMERGENCY PHYSICIAN Emergency Medicine; FAMILY PHYSICIAN Family Medicine
DX: I11.0 Hypertensive heart disease with heart failure (principal); I50.33 Acute on chronic diastolic (congestive) heart failure; I48.21 Permanent atrial fibrillation; J20.8 Acute bronchitis due to other specified organisms; E11.9 Type 2 diabetes mellitus without complications; M48.061 Spinal stenosis, lumbar region without neurogenic claudication; Z11.52 Encounter for screening for COVID-19; Z91.199 Patient's noncompliance with other medical treatment and regimen due to unspecified reason
CPT/HCPCS: 71046; 80048; 80053; 82962; 83036; 83880; 84484; 85025; 85027; 87502; 87811; 93005; 93306; 94640; 94667; 94668; 96374; 96375; 97162; 97166; 99285

== ENCOUNTER → 2024-01-05 15:10 | Outpatient (REF) | payer OTHER, SELFPAY | LOC: MRI 3T 15:10 | PROVIDERS: ATTENDING PHYSICIAN Physical Medicine & Rehabilitation; FAMILY PHYSICIAN Family Medicine | DX: M54.12 Radiculopathy, cervical region (principal) | CPT/HCPCS: 72141 ==

== ENCOUNTER → 2024-08-22 14:01 | Outpatient (REF) | payer OTHER, SELFPAY | LOC: RCS 14:01 | PROVIDERS: ATTENDING PHYSICIAN Physician Assistant | DX: Z01.818 Encounter for other preprocedural examination (principal); I48.21 Permanent atrial fibrillation | CPT/HCPCS: 93005 ==

== ENCOUNTER 2025-02-01 16:18 | Inpatient (IN) | payer OTHER, SELFPAY ==
[2025-02-01] VITALS (14 sets, daily range): BP systolic 92–160; BP diastolic 76–127; BMI 36.3; BMI 35.8
[2025-02-01 13:12] LABS: Hematocrit 35.3 % (37.0-47.0); Hemoglobin 10.6 g/dL (12.0-16.0); Mean Corp Hgb Conc. 30.0 g/dL (33.0-37.0); Mean Corpuscular Volume 79.0 fL (81.0-99.0); Nucleated Red Blood Cells % 0 %; Platelet Count 275 10^3/uL (130-400); Red Cell Dist. Width 15.3 % (11.5-14.5)
--- NOTE | 2025-02-01 13:16 | ED.GENMED ---
History of Present Illness
General
Chief Complaint: Breathing Problem
Source: patient and spouse
Time Seen by Provider: 02/01/25 12:56
History of Present Illness
History of Present Illness:
This patient is an 89-year-old female with a history of diabetes, hypertension, heart failure with preserved ejection fraction, A-fib. She states that she discontinued all her medications 3 months ago because she felt that her medications do more
harm than good. Of note, patient has persistent back and leg pain and is generally nonambulatory. She presents here complaining of shortness of breath and cough. She states that for the past few days she notes mucus in her throat every morning
associated with a dry cough and sneezing. She also reports mild anorexia and increasing abdominal distention without associated nausea, vomiting, fever, chills, urinary symptoms. She often has frequent urination which is unchanged. She saw her
doctor yesterday and was prescribed doxycycline, and took a dose last night and again this morning. She was referred for outpatient x-ray and labs but came to the emergency accompanied by her . When asked about leg swelling she does state
that her legs will intermittently become more edematous and usual, most recently in the last few days, right slightly greater than left which does happen from time to time.
Past History
Past History
ED Past Medical History: Arrthythmia (Atrial fibrillation), Valvular disease (Valvular heart disease) and Other (PNA)
ED Past Surgical History: Appendectomy
Social History
Tobacco: Non-smoker
Alcohol: None
Personal:
Living: with family
Phy Exam
Physical Exam
Physical Exam:
GENERAL: Alert , in no apparent distress, pleasant
EYE: pupils equal and reactive
NECK: Supple, no significant adenopathy.
ENT: o/p clr, mmm.
CARDIAC: Irregularly irregular, tachycardic
LUNGS: Equal breath sounds bilaterally, mild tachypnea but speaks in full sentences, decreased breath sounds bilaterally, no stridor, slight rales noted
ABDOMEN: Soft, without focal tenderness, no r/g, no cvat
NEUROLOGICAL: Alert and oriented, baseline leg weakness noted
SKIN: Warm and dry, skin intact. Scattered bruising about upper extremity
MUSCULOSKELETAL: 2-3+ bilateral lower extremity edema, right greater than left, well perfused.
PSYCH: Normal and appropriate interaction.
Scores
Heart Failure Risk
Heart Failure Risk Score: Yes
History of Stroke or TIA: No
History of intubation for respiratory distress: No
Heart rate on ED arrival >/= 110: No
SaO2 <90% on arrival on room air: No
HR >/=110 during 3min walk test (or too ill to perform test): No
ECG has acute ischemic changes: No
Urea >/=12mmol/L (BUN 33.6mg/dL): Yes
Serum CO2>/=35mmol/L: No
Troponin I or T elevated to CT Level (0.4mg/dL): No
NT-proBNP >/=5,000ng/L (5,000pg/ml): No
HF Risk Score: 1
Admission Status: MEDIUM RISK 5.1% Consider observation or discharge to home with homecare & f/u visit to PCP/Cold Roll Operator, or SNF for treatment
Course
Orders/Labs/Results
Orders:
Orders
02/01/25 12:33
EKG [Electrocardiogram (*1)] Urgent
Reason for Study: Shortness of Breath
EKG- Treatment ONCE
02/01/25 13:00
Cardiac Monitoring- Treatment ONCE
IV Insert/Care/Rem.- Treatment PRN
CR Chest - 2 Views Urgent
Comment:
Reason For Exam: respiratory distress
O2 Therapy [RESP] Urgent
Titrate/Wean O2 to maintain O2 sat greater than (%): 93
Special Instructions: TO MAINTAIN CONTINUOUS O2 SATS >/= 93%
Pulse Ox/cont/shift [RESP] Urgent
Quantity: 1
Special Instructions: continuous pulse ox
02/01/25 13:02
Basic Metabolic Panel Urgent
Complete Blood Count/With Diff Urgent
NT-proBNP Urgent
Troponin I Urgent
02/01/25 13:16
Diltiazem 125 mg/125 ml Nss [Cardizem] 125 mg in 125 ml IV NOW
Initial dose in mg/hr, then titrate:: 5
Titrate to keep:: Heart rate 80-100 bpm
Titrate by mg/hr:: 5 mg/hr
Frequency of titrations (minutes):: 15
Maximum dose in mg/hr:: 15
Diltiazem HCl [Cardizem] 20 mg IV NOW STA
02/01/25 13:21
COVID-19 Antigen Urgent
Source: Nasal Swab
Influenza A+B Rapid Molecular Urgent
SALIMA Source: Nasal Swab
Specimen Description:
02/01/25 13:56
D-Dimer Urgent
02/01/25 14:17
Apixaban [Eliquis] 2.5 mg PO NOW STA
Furosemide [Lasix] 40 mg IV NOW STA
02/01/25 15:21
Potassium Urgent
02/01/25 15:48
Admit/Transfer Patient As Directed
Co-Sign Provider:
Level of Care: Inpatient admission
Assign to:: Telemetry
Physician / Group: Richmond Ortega
Diagnosis: acute on chronic HFpEF
Reason for Telemetry: Acute Heart Failure
Date to Stop Telemetry: 02/04/25
Time to Stop Telemetry: 11:00
Reason for Hospitalization: acute on chronic HFpEF
Expected length of stay greater than two midnights?: Yes
ELOS- Estimated Length of Stay in days: 3
I certify the patient meets the requirements for IP care: Yes
PRN Pain Medication Management As Directed
May give lesser potent ordered pain med per pt: Yes
preference::
Protocol:: Medication orders for pain may be administered in a
manner that supports deferring to patient preference
when the pt is:
- Requesting an ordered lesser potent pain medication.
Least to most potent pain medications are defined
as: acetaminophen < NSAID < tramadol < opioids
(morphine, oxycodone, hydromorphone).
- Requesting a lesser dose of the same medication IF
ORDERED.
- Requesting a less intrusive route of administration
if both routes are prescribed by the provider (PO <
IV).
02/01/25 15:49
Code Status As Directed
Resuscitation Status: Full Code
02/01/25 16:[address] [CT Chest PE Study] Stat
Comment:
Reason For Exam: elevated d-dimer, tachycardia, exertional dyspnea
02/04/25 11:00
DC Protocol for Telemetry ONCE
Abnormal Lab Results
02/01/25 02/01/25
13:02 13:56
Hgb 10.6 L g/dL
(12.0-16.0)
Hct 35.3 L %
(37.0-47.0)
MCV 79.0 L fL
(81.0-99.0)
MCH 23.7 L pg
(27.0-31.0)
MCHC 30.0 L g/dL
(33.0-37.0)
RDW 15.3 H %
(11.5-14.5)
Absolute Lymphs (auto) 1.0 L 10^3/uL
(1.2-3.4)
Absolute Monos (auto) 0.7 H 10^3/uL
(0.1-0.6)
Lymphocytes % 13.3 L %
(20.5-51.1)
Monocytes % 9.8 H %
(1.7-9.3)
D-Dimer 1.88 H ug/mlFEU
(0.00-0.50)
Chloride 108 H mmol/L
(98-107)
BUN 20 H mg/dl
(7-17)
Glucose 288 H mg/dl
(70-99)
02/01/25 13:02
02/01/25 15:21
Vital Signs
Initial and Last Documented VS:
Initial Vital Signs
Temp Pulse Resp BP Pulse Ox
98.5 F 92 18 153/78 98
02/01/25 12:31 02/01/25 12:31 02/01/25 12:31 02/01/25 12:31 02/01/25 12:31
Last Documented Vital Signs
Temp Pulse Resp BP Pulse Ox
98.5 F 98 26 135/85 93
02/01/25 12:31 02/01/25 16:00 02/01/25 16:00 02/01/25 16:00 02/01/25 16:00
*Pulse Oximetry
SaO2: 96
Oxygen Mode of Delivery: Room air
Patient hypoxic: no
*Critical Care Note
Total Time (30-74mins, 75-104mins- exclusive of procedures): 35
Update Note
Update Note:
Patient presents to the Emergency Department with dyspnea
Number and Complexity of Problems Addressed at the Encounter
� Chronic conditions affecting care:
� Acute Exacerbation and/or Progression of Chronic Illness:
� Differential Diagnosis includes:
Amount and/or Complexity of Data to be Reviewed and Analyzed
� I performed an independent evaluation of and my interpretation is:
EKG: Read by me, A-aaron with RVR, no acute ischemia
CT:
Xrays:cxr read by me and rads There is a new right-sided pleural effusion and probable compressive atelectasis in the right lower lobe.
Overall pulmonary findings suggest a component of CHF/interstitial edema
Laboratory Studies: New anemia noted (no active bleeding, weighing risks and benefits, DOAC initiated at this time), mild to moderate hyperglycemia noted without associated acidosis. Troponin unremarkable, BMP unremarkable.
Other:
� Review of other/old records reveals:
� Clinical information was obtained by an independent historian:
� Prescriptions/Medications Considered but not given:
� Further testing considered but not performed:
Risk of Complications and/or Morbidity or Mortality of Patient Management
� Social determinants of health affecting care:
� Discussion with other providers (PCP, Hospitalists, Consultants, etc):
� Escalation of care including admission/observation vs risk of discharge considered: 2:21 PM reassessment, heart rate now normal, patient remains in A-fib, Cardizem drip initiated. She is resting comfortably. Respiratory rate
is still elevated, however speaks in full sentences easily and is not in any acute distress. Workup pending, patient agreeable to Lasix and Eliquis at this time, and anticipates admission to the hospital and agreeable to this. Although bnp just
moderately elevated, suspect this is primary etiology of sxs. weight increased by approx 10 kg from last admission. Will d/w hospitalist for admission.
ED Attending Note
-
Portions of this chart may have been created with voice recognition software.� Occasional wrong word or��sound alike� substitutions may have occurred due to the inherent limitations of voice recognition software.
Discharge Plan
Departure
Patient Disposition: Admit
Date of Disposition: 02/01/25
Time of Disposition: 14:48
Admit to: Telemetry
Presentation/result/management discussed w/ accepting MD/DO: Hospitalist
Condition: Fair
Discharge Problem:
Acute heart failure with preserved ejection fraction (HFpEF)
Interventions
Interventions:
*Risk Screen - Suicide Last Done: 02/01/25 12:31
*General Assessment Last Done: 02/01/25 12:31
*Neglect/Abuse Screening Last Done: 02/01/25 12:31
*ED- Fall Risk Assessment Last Done: 02/01/25 12:31
*ED COVID-19 Vaccine History Last Done: 02/01/25 12:31
*ED Influenza Vaccine History Last Done: 02/01/25 12:31
ED- Cardiac Assessment Last Done: 02/01/25 13:12
ED- Pulmonary Assessment Last Done: 02/01/25 13:12
[2025-02-01 13:36] LABS: Troponin I 0.021 ng/ml
[2025-02-01 13:45] LABS: Blood Urea Nitrogen 20 mg/dl (7-17); Calcium 9.1 mg/dl (8.4-10.2); Carbon Dioxide 24 mmol/L (22-30); Chloride 108 mmol/L (98-107); Estimated Creatinine Clearance 58 ml/min; Glucose 288 mg/dl (70-99); Sodium 141 mmol/L (135-145); eGFR > 60.00
[2025-02-01] MEDS: CARDIZEM 20 MG IV (13:49)
[2025-02-01] MEDS: CARDIZEM 125 IV (13:53)
[2025-02-01 13:54] LABS: COVID-19 Antigen Negative (Negative)
[2025-02-01] MEDS: ELIQUIS 2.5 MG PO (14:24)
[2025-02-01] MEDS: LASIX 40 MG IV (14:25)
[2025-02-01 14:44] LABS: D-Dimer 1.88 ug/mlFEU (0.00-0.50)
--- NOTE | 2025-02-01 14:56 | HPS.HSE ---
Addendum entered and electronically signed by Richmond Ortega MD 02/01/25 17:54:
This is an addendum to H&P written by Sis Siegel on 02/01/2025. �Patient seen and examined independently with [employer]IDENT[employer].\\
87-year-old female past medical history of type 2 diabetes, hypertension, HFpEF, permanent atrial fibrillation, wheelchair-bound presenting with exertional dyspnea for 2 weeks and lower extremity edema. �Noncompliant with meds for 3 months because
thinks medications were unhelpful.
Vital signs show heart rate up to 128. �EKG shows atrial fibrillation.
Labs showed blood sugar 288. �Cardiac BNP of 900. �Troponin 0.021.� D Dimer was 1.88. Chest x-ray shows new right-sided pleural effusion and probable compressive atelectasis in the right lower lobe. �Findings concerning for CHF/interstitial edema.
Patient with evidence of mild acute CHF exacerbation secondary to uncontrolled atrial fibrillation secondary to medication noncompliance.
40 IV Lasix given. �Eliquis restarted. �Cardizem drip started. �Cardiology consulted. Check CT PE given elevated D-dimer.�
Original Note:
Family Physician
-
Family Physician: Alexa Ballard
Chief Complaint
-
exertional dyspnea
History of Present Illness
Patient is a 89-year-old female with past medical history significant for permanent atrial fibrillation, chronic HFpEF, type 2 diabetes, hypertension, hyperlipidemia and lumbar spinal stenosis who presented to [facility] ED for evaluation of exertional
dyspnea. Patient and spouse at bedside who assisted with HPI. Patient states that she has had increased edema in bilateral lower extremities R>L. Spouse reports that he brought patient for evaluation because she was unable to take more than 2 steps
without needing to stop because of shortness of breath. He states he is her primary caregiver and that prior to covid patient was generally healthy and post vaccine she had a similar episode and hospitalized. Since then she has continued to decline.
She was complaint with medications for several years and about 6 months ago she began to wean medications because she feels they do more harm then good for her. She has been without all medications for approximately 3 months now. Spouse states
despite patient being mainly wheelchair bound he does keep her active as possible but he was away last week and she was more sedentary then normal and when he returned he noticed the difference. Denies fever, chills, cough, palpitations, chest pain,
nausea, vomiting, constipation, diarrhea or urinary symptoms. Patient was taking Eliquis, digoxin, furosemide, valsartan, metformin and metoprolol daily prior to stopping medications.
Medical History
Past Medical History
Past Medical History: Reports Other
Additional Past Medical History:
permanent atrial fibrillation
chronic HFpEF
type 2 diabetes
hypertension
hyperlipidemia
lumbar spinal stenosis
Past Surgical History: Reports Other
Additional Past Surgical History:
appendectomy
cardiac cath
uterine polyp extraction
Social History
Tobacco: Non-smoker
Alcohol: Daily (1-2 drinks daily (either whiskey or wine))
Drug: None
Personal:
Living: With Family
Employment: Employed
Family History
Family History: Other (Mother: colon cancer, CAD; Father: DM)
Allergies / Home Medications
Allergies reflects when Allergies were last updated in [email or web address].
Home Medications with original date entered in [email or web address]
Allergy/Medication List:
Allergies
Allergy/AdvReac Type Severity Reaction Status Date / Time
Penicillins Allergy Unknown Verified 02/01/25 12:33
Home Medications
naproxen sodium 220 mg tablet (Aleve) 440 mg PO DAILYPRN PRN mild pain 05/17/23
latanoprost 0.005 % eye drops 1 drp BOTH EYES HS 02/01/25
Review of Systems
-
History Source: Patient
Constitutional: Denies Fever or Chills
EENT: Denies Sore Throat
Respiratory: Reports Trouble Breathing (exertional dyspnea ); Denies Cough or Hemoptysis
Cardiac: Denies Chest Pain, Diaphoresis, Palpitations or Syncope
Abdomen/GI: Denies Abdominal Pain, Nausea, Vomiting or Diarrhea
: Denies Dysuria, Frequency or Urgency
Musculoskeletal: Denies Joint Pain
Skin: Denies Rash
Neurological: Reports Weakness; Denies Dizzy, Headache or Numbness
Endocrine: Denies Polyuria or Polydipsia
Physical Exam
Vital Signs
Vital Signs
Temp Pulse Resp BP Pulse Ox
98.5 F 89 32 129/80 92
02/01/25 12:31 02/01/25 14:25 02/01/25 14:00 02/01/25 14:25 02/01/25 14:00
Physical Exam
General: Well Developed, Well Nourished, Comfortable, Conversant and Obese
HEENT: NormoCephalic, Moist mucous membranes, PERRLA, Nose Appears Normal and Ears Appear Normal
Respiratory: Clear, Non Labored Respirations and Decreased Breath Sounds; No Wheezes, Rales, Rhonchi or Crackles
Cardiac: Irregular Rhythm, Tachycardia and Peripheral Edema (+2-3 bilaterally); No Murmur, Rub or Gallop
GI: Soft, Non Tender, Non Distended and Normal Bowel Sounds
Musculoskeletal: No Clubbing, No Cyanosis, Edema, Left Lower Extremity and Edema, Right Lower Extremity
Skin: Warm and IV/Catheter Site
Neuro: Awake and AO x 3
Psych: Calm
Laboratory Results
-
02/01/25 13:02
02/01/25 13:02
Laboratory Results
Total Bilirubin Cancelled 02/01/25 13:02
AST Cancelled 02/01/25 13:02
ALT Cancelled 02/01/25 13:02
Alkaline Phosphatase Cancelled 02/01/25 13:02
Troponin I 0.021 ng/ml 02/01/25 13:02
Data Reviewed
-
Diagnostic Radiology: Report Reviewed by me (CXR: There is a new right-sided pleural effusion and probable compressive atelectasis in the right lower lobe. Overall pulmonary findings suggest a component of CHF/interstitial edema)
Medical Tests (Nuc Med, Echo, EKG etc): Report Reviewed by me (EKG: ATRIAL FIBRILLATION WITH RAPID VENTRICULAR RESPONSE WITH PREMATURE VENTRICULAR OR ABERRANTLY CONDUCTED COMPLEXES RIGHTWARD AXIS LOW VOLTAGE QRS SEPTAL INFARCT , AGE UNDETERMINED)
Lab Data: Labs Reviewed by me (hgb 10.6, hct 35.3, d-dimer 1.88, pBNP 894)
Impression/Plan
-
IMPRESSION/PLAN:
#exertional dyspnea likely 2/2 acute on chronic HFpEF
hgb 10.6, hct 35.3, pBNP 894
EKG: ATRIAL FIBRILLATION WITH RAPID VENTRICULAR RESPONSE WITH PREMATURE VENTRICULAR OR ABERRANTLY CONDUCTED COMPLEXES
RIGHTWARD AXIS
LOW VOLTAGE QRS
SEPTAL INFARCT , AGE UNDETERMINED
CXR: There is a new right-sided pleural effusion and probable compressive atelectasis in the right lower lobe.
Overall pulmonary findings suggest a component of CHF/interstitial edema
Influenza: negative
Covid: negative
- Admit to telemetry
- Consult Cardiology
- ECHO
- IV Lasix 40mg daily
- I & Os
- daily weights
#elevated D-dimer
d-dimer 1.88
- CT PE pending
#permanent atrial fibrillation.
EKG: ATRIAL FIBRILLATION WITH RAPID VENTRICULAR RESPONSE WITH PREMATURE VENTRICULAR OR ABERRANTLY CONDUCTED COMPLEXES
RIGHTWARD AXIS
LOW VOLTAGE QRS
SEPTAL INFARCT , AGE UNDETERMINED
- restart Eliquis
#type 2 diabetes
- AccuCheck AC & HS
- SSI
#hypertension
#hyperlipidemia
#lumbar spinal stenosis
Code status: full code
DVT prophylaxis: Eliquis
[2025-02-01 15:41] LABS: Potassium 4.3 mmol/L (3.5-5.1)
[2025-02-01 18:50] LABS: Glucose - Point of Care 227 mg/dl (70-99)
[2025-02-01] MEDS: NOVOLOG FLEXPEN-LOW RESISTANCE 2 UNITS SC (19:17)
--- NOTE | 2025-02-01 19:32 | PTCARENOTE ---
Pt admitted to rm 336-2. Pulled over to bed from stretcher. Cardizem gtt @5mg/hr running. Placed on tele #3 - afib in [id number]. Pt AAOx3, VSS. POC explained and verbalized understanding of all instructions. present at bedside.
[2025-02-01] MEDS: ELIQUIS 5 MG PO (21:07)
[2025-02-01 21:55] LABS: Glucose - Point of Care 252 mg/dl (70-99)
[2025-02-02] VITALS (8 sets, daily range): BP systolic 112–150; BP diastolic 60–86; PULSE 89; O2SAT 93; BMI 35.8
--- NOTE | 2025-02-02 01:27 | PTCARENOTE ---
patient on continuous plus ox. order for spo2 to be above 93%. patient spo2 went to 88% on room air while sleeping. pt asymptomatic. patient placed on 2 liters NC. patient spo2 99%. POC ongoing.
[2025-02-02 05:42] LABS: Hematocrit 33.6 % (37.0-47.0); Hemoglobin 9.6 g/dL (12.0-16.0); Mean Corp Hgb Conc. 28.6 g/dL (33.0-37.0); Mean Corpuscular Volume 79.1 fL (81.0-99.0); Platelet Count 220 10^3/uL (130-400); Red Cell Dist. Width 15.3 % (11.5-14.5)
[2025-02-02 06:07] LABS: Blood Urea Nitrogen 16 mg/dl (7-17); Calcium 9.0 mg/dl (8.4-10.2); Carbon Dioxide 26 mmol/L (22-30); Chloride 108 mmol/L (98-107); Estimated Creatinine Clearance 57 ml/min; Glucose 204 mg/dl (70-99); HDL Cholesterol 42 mg/dl; LDL Cholesterol, Calculated 81 mg/dl; Potassium 3.8 mmol/L (3.5-5.1); Sodium 142 mmol/L (135-145); Very Low Density Lipoprotein 19 mg/dl (0-30); eGFR > 60.00
[2025-02-02 07:48] LABS: Glucose - Point of Care 198 mg/dl (70-99)
[2025-02-02] MEDS: LASIX 40 MG IV (08:58)
[2025-02-02] MEDS: NOVOLOG FLEXPEN-LOW RESISTANCE SC ×4 (08:58→16:53)
[2025-02-02] MEDS: DESENEX/MITRAZOL/ZEASORB 1 APPLIC TOPICAL ×2 (08:59→20:18)
[2025-02-02 09:04] LABS: Iron 20 ug/dl (37-170)
[2025-02-02 09:09] LABS: Glycohemoglobin (HgbA1c) 9.9 % (4.0-5.6)
[2025-02-02 09:11] LABS: Total Iron Binding Capacity 425 ug/dl (265-497)
--- NOTE | 2025-02-02 09:37 | CON.CAR ---
Consultation
Consultation Request
Date/Time Consultation Requested: [phone]
Date/Time Consultation Performed: [id number]
Requesting Provider: hospitalist
Performing Provider: Dr Cartagena
Reason for Consultation: HF
Medical History
-
History of Present Illness:
.
89 year old with PAF, HFpEF who presetns with complaints of increased edma the last 2 weeks. Patient stopped taking meds about 6 months ago. She initlly denied SOB. She had some nighttime issues breathing and some oth this she attributed to nasal
congestion. No fever. Nasal congestion has improved. No CP. CT suggested HF and pleural effusion. No palps or heart racing. Activity is limtied due to ibeth issues.
PMH
PAF ( hospitlizatio and CV 2020
HFpEF ( admti 2020 - EF 50%)
Diabetes
Hypertension
Hyperlipidemia
Spinal stenosis
Meds. None
Social history. Lives with her .
ECG tracing reviewed A-fib with heart rate 122 nonspecific T wave abnormality possible prior septal SC
Chest x-ray 02/01/2025 new right-sided pleural effusion probable compressive atelectasis right lower lobe overall pulmonary findings suggest component of CHF/interstitial edema
chest ct 02/01/25
1. No evidence of pulmonary embolism.
2. Findings suggesting CHF/pulmonary edema with moderate to large right pleural effusion.
3. 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
Echocardiogram 05/18/2023 ejection fraction 50% enlarged right ventricular size low normal right ventricular systolic function severely dilated left atrium and severely dilated right atrium moderate mitral regurgitation mild aortic stenosis mild to
moderate tricuspid digitation estimated PA pressure 40 to 45 mmHg
Past Medical History
Past Medical History: Other (As noted)
Social History
Living: With Family
Family History
Family History: Reviewed & Not Pertinent
Allergies / Home Medications
Allergy/AdvReac Type Severity Reaction Status Date / Time
Penicillins Allergy Unknown Verified 02/01/25 12:33
�Medication �Instructions �Recorded �Confirmed �Type
naproxen sodium 220 mg tablet 440 mg PO DAILYPRN PRN mild pain 05/17/23 02/01/25 History
(Aleve)
latanoprost 0.005 % eye drops 1 drp BOTH EYES HS Eye Condition 02/01/25 02/01/25 History
Review of Systems
-
All other systems: Negative unless noted
Physical Exam
Vital Signs
Temp Pulse Resp BP Pulse Ox
98.1 F 117 18 126/67 96
02/02/25 07:21 02/02/25 07:21 02/02/25 07:21 02/02/25 07:21 02/02/25 07:21
Lab Results
02/02/25 05:22
02/02/25 05:22
Troponin I 0.021 ng/ml 02/01/25 13:02
[id number] Pept 894 pg/ml 02/01/25 13:02
Physical Exam
General: Well Developed and Well Nourished
HEENT: Normocephalic, Anicteric and Other (Pupils equal. Eyes extract movements intact)
Respiratory: Other (No wheezes rales or rhonchi mildly decreased right base)
Cardiac: Irregular Rhythm and Other (No murmurs)
GI: Soft, Non Tender and Normal Bowel Sounds
Musculoskeletal: No Clubbing, No Cyanosis and Other (Mild to moderate bilateral lower extremity edema)
Skin: Warm
Neuro: Awake, Alert and Oriented
Psych: Calm and Confused
Impression / Plan
-
.
Acute left heart failure. Patient with previous history of HFpEF. Patient also noted to have A-fib with RVR which may be a contributing factor along with noncompliance.
Reviewed importance of compliance with medical therapy in order to both treat the acute problem but to decrease the likelihood of recurrent decompensated heart failure and rehospitalization.
- Diuresis with IV Lasix
- Monitor labs and renal function
- Daily weights
- Echocardiogram
- Rate control A-fib
- GDMT will continue to be assessed as patient is diuresed and also based on echo results. Also will need to determine what medications patient can afford and what she is willing to take. Would consider addition of Jardiance or Farxiga. Would
have case management check cost. Would hold on addition of MRA until patient is shown that she will be compliant with outpatient lab test.
.
PAF. Patient with previous history of A-fib and electrical cardioversion back in 2020. Unclear how long she has been in A-fib. Patient does not have palpitations heart racing and does not know how long she has been in A-fib.
-Discontinue IV Cardizem. Beta-gin for rate control
-[id number] 5 (age greater than 75, female, heart failure, dm)
- Recommend anticoagulation with Eliquis if okay with primary team. Patient is noted to have iron deficiency anemia with hemoglobin with hemoglobin 9.6.
.
Pleural effusion.
- Can assess response to diuresis but patient may require thoracentesis.
.
Noncompliance. Stopped meds 6 months ago. I discussed importance of medications as it relates to treatment of A-fib and heart failure. Also discussed importance of additional outpatient follow-up.
.
DM -treatment directed by primary team
.
Anemia. Appears to have iron deficiency. Evaluation and treatment as directed by primary team
Data Reviewed
-
EKG: Tracing Personally Visualized and interpreted
Radiology: Report Reviewed by me
CT Scan: Report Reviewed by me
Medical Tests (Nuc Med, Echo etc): Report Reviewed by me
Labs: Labs Reviewed by me
[2025-02-02 09:58] LABS: LDH 171 U/L (120-246)
--- NOTE | 2025-02-02 10:49 | W.PN.HOSP.TC ---
Addendum entered and electronically signed by Tuan Vela MD 02/02/25 10:52:
#Spinal stenosis
cont to follow as outpatient with established doctors
Original Note:
Today's Communication/Plan
-
See PN
Assessment / Plan
Assessment / Plan
89yo F with PMHX of Afib, HFpEF, DM, HTN, HLD, spinal stenosis with chronic baclk pain and chronic RLE weakness mostly wheelchair bound, came with worsening pain on ambulation, found Afib with RVR, large R pleural effusion and ascites with signs of
cirrrhosis. Patient stopped to take her meds few months ago by choice since she thought they not helpful. Patient is getting epidural injections as outpatient already. Kept declining insulin in the hospital too. Poor complance
A/P:
#Acute on chronic HFpEF exacerbation
#Afib, paroxysmal with RVR
#Pulmonary edema
Cardio consult
Rate/rhythm control
telemetry
Eliquis when possible
Lasix, daily weight, follow Cr and electrolytes
Echo
Counseled patient on compliance with meds
will benefit from Jardiance upon d/c
#Pleural effusion
thoracentesis by IRAD
#Acites with new liver cirrosis
1 glass of wine daily
recommended cessation
Paracentesis
check hepatitis panel
GI consult eventually vs outpatient
DM type 2 with neuropathy
HgBA1c 9.9%
DM TELE RN consult
Inxulin SS. Accuchecvks, DM diet
Patient reluctant to insulin
#KAILEE
IV iron
check stool for occult blood
recomemd outpatient colonoscopy/EGD
#Elevated ddimer
CT chest w/o PE
Check US LE for completeness
DVT ppx SCDs, then Elqiuis after thoracentesis and paracentesis
Full code
I have spent at least 59min reviewing chart, test results, communication with consultants and providing direct patient care
Anticipated Discharge: > 48 hours
Subjective/Interval History
-
Date of Service: February 02, 2025
Objective Data
-
Labs:
Laboratory Results
02/02/25
05:22
WBC 6.8
Hgb 9.6 L
Hct 33.6 L
Plt Count 220
Sodium 142
Potassium 3.8
Chloride 108 H
Carbon Dioxide 26
BUN 16
Creatinine 0.8
Glucose 204 H
Calcium 9.0
Vital Signs:
Vital Signs
Temp Pulse Resp BP Pulse Ox
97.4 F 112 19 134/75 93
02/02/25 10:42 02/02/25 10:42 02/02/25 10:42 02/02/25 10:42 02/02/25 10:42
I&O
02/01/25 02/02/25 02/03/25
06:59 06:59 06:59
Intake Total 120 / 120
Output Total 2425 / 2425
Balance -2304 / -2304
Review of Systems
-
History Source: Patient
All other systems: Reviewed and negative
Physical Exam
-
General: No Apparent Distress
HEENT: Normocephalic
Respiratory: Crackles and Decreased Breath Sounds (R)
Cardiac: Irregular Rhythm
GI: Soft, Nontender and Nondistended
Musculoskeletal: No Clubbing, No Cyanosis and No Edema
Neuro: Other (RLE chronic weakness)
Psych: Calm
[2025-02-02 11:15] LABS: Ferritin 12.9 ng/ml (11.1-264.0)
--- NOTE | 2025-02-02 11:43 | PN.DE.MGMTRT ---
Insulin Management
- -
02/02/2025: Diabetes Management Consult
89 year old female with PMH: A-Fib, HFpEF, HTN, HLD, T2DM, spinal stenosis with chronic baclk pain and chronic RLE weakness mostly wheelchair bound, came with worsening pain on ambulation, found Afib with RVR, large R pleural effusion and ascites
with signs of cirrhosis. Patient stopped to take her meds few months ago by choice since she thought they not helpful. Patient is getting epidural injections as outpatient already. Kept declining insulin in the hospital too. Poor compliance. Chart
review shows that pt was taking Metformin 500mg BID, not sure when she stopped taking it.
A1C on admission 9.9%, glucose 394. Nursing reports patient and are very reluctant for her to take medication or insulin.
Of note, pre-lunch glucose was 198 and pt has refused her lunch time corrective insulin dose.
Pt is not available to discuss diabetes care plan and options for management, she is off the floor for US and Echo
Will need to discuss with patient and the importance of glucose control to minimize risk of acute and chronic diabetes related complications
Will start Januvia 100mg daily, anticipate refusal of any additional medications, as this has happened in the past, where pt was not agreeable to insulin or any other medications except Metformin. Resume Metformin 500 mg BID.
Diabetes History
- -
Type of Diabetes: 2
Pre-Admission Diabetes Regimen
02/01/25 02/02/25
13:02 05:22
Creatinine 0.8 0.8
Lab Results
Hemoglobin A1c 9.9 % (4.0-5.6) H 02/02/25 05:22
Insulin Pump Settings
IP Diabetes Regimen
02/01/25 02/01/25 02/01/25
13:02 18:44 21:53
Glucose 288 H
POC Glucose 227 H 252 H
02/02/25 02/02/25
05:22 07:47
Glucose 204 H
POC Glucose 198 H
Patient Education
[2025-02-02 13:06] LABS: Body Fluid Second Tech ASW
[2025-02-02] MEDS: CARDIZEM 125 IV (13:11)
[2025-02-02 13:26] LABS: Hepatitis B Surface Antigen Negative (Negative)
[2025-02-02 13:44] LABS: Hepatitis C Antibody Negative (Negative)
[2025-02-02 14:56] LABS: Glucose - Point of Care 276 mg/dl (70-99)
--- NOTE | 2025-02-02 16:26 | CM ---
[facility] met with Kandi to obtain information for assessment. Patient stated that she lives with her spouse of 40 years in a two story home with one step to enter. Kandi reports being (I) with ambulation and ADLs. She has a walker for long distances,
and also have 2 canes at home that are not being used at this time.
Plan: Discharge to home with no needs identified.
[2025-02-02] MEDS: FERRLECIT 110 MG IV (16:51)
[2025-02-02] MEDS: JANUVIA 100 MG PO (16:52)
[2025-02-02] MEDS: GLUCOPHAGE 500 MG PO (16:53)
[2025-02-02 16:55] LABS: Glucose - Point of Care 336 mg/dl (70-99)
[2025-02-02] MEDS: TOPROL XL 50 MG PO (18:09)
--- NOTE | 2025-02-02 19:30 | PTCARENOTE ---
Beta gin given at 1809 - long conversation with patient and about reason for medication and risk of not taking r/t afib. Pt agreeable, cardizem gtt to be turned off in approx 1 hr per conversation with hospitalist. Will monitor HR for
goal <110, if >than 140 will need to resume gtt, if 110-140 will consider another dose toprol. Oncoming nurse aware. Currently HR in 80s, cardizem gtt turned off at 1930
[2025-02-02] MEDS: ELIQUIS 5 MG PO (20:18)
[2025-02-02 21:47] LABS: Glucose - Point of Care 260 mg/dl (70-99)
[2025-02-03 03:26] VITALS: BP 139/80
[2025-02-03 05:53] LABS: Hematocrit 32.1 % (37.0-47.0); Hemoglobin 9.7 g/dL (12.0-16.0); Mean Corp Hgb Conc. 30.2 g/dL (33.0-37.0); Mean Corpuscular Volume 77.2 fL (81.0-99.0); Nucleated Red Blood Cells % 0 %; Platelet Count 234 10^3/uL (130-400); Red Cell Dist. Width 15.3 % (11.5-14.5)
[2025-02-03 06:00] VITALS: BMI 35.5
[2025-02-03 06:19] LABS: ALT (SGPT) 12 U/L (0-35); AST (SGOT) 17 U/L (14-36); Albumin 3.4 g/dl (3.5-5.0); Alkaline Phosphatase 86 U/L (38-126); Blood Urea Nitrogen 17 mg/dl (7-17); Calcium 8.7 mg/dl (8.4-10.2); Carbon Dioxide 28 mmol/L (22-30); Chloride 105 mmol/L (98-107); Estimated Creatinine Clearance 51 ml/min; Glucose 203 mg/dl (70-99); Potassium 3.5 mmol/L (3.5-5.1); Sodium 140 mmol/L (135-145); Total Protein 6.6 g/dl (6.3-8.2); eGFR > 60.00
[2025-02-03 07:47] VITALS: BP 125/67
[2025-02-03 08:10] LABS: Glucose - Point of Care 198 mg/dl (70-99)
[2025-02-03] MEDS: ELIQUIS 5 MG PO ×2 (09:23→20:17)
[2025-02-03] MEDS: NOVOLOG FLEXPEN-LOW RESISTANCE 1 UNITS SC ×2 (09:23→18:33)
[2025-02-03] MEDS: JANUVIA 100 MG PO (09:23)
[2025-02-03] MEDS: LASIX 40 MG IV ×2 (09:24→15:22)
[2025-02-03] MEDS: TOPROL XL 50 MG PO ×2 (09:28→20:17)
[2025-02-03] MEDS: DESENEX/MITRAZOL/ZEASORB 1 APPLIC TOPICAL ×2 (09:30→20:18)
--- NOTE | 2025-02-03 11:01 | W.PN.HOSP.TC ---
Today's Communication/Plan
-
cont diuresis as per card
Assessment / Plan
Assessment / Plan
89yo F with PMHX of Afib, HFpEF, DM, HTN, HLD, spinal stenosis with chronic baclk pain and chronic RLE weakness mostly wheelchair bound, came with worsening pain on ambulation, found Afib with RVR, large R pleural effusion and ascites with signs of
cirrrhosis. Patient stopped to take her meds few months ago by choice since she thought they not helpful. Patient is getting epidural injections as outpatient already. Kept declining insulin in the hospital too. Poor complance
A/P:
#Acute on chronic HFpEF exacerbation
#Afib, paroxysmal with RVR
#Pulmonary edema
Cardio consult
Rate/rhythm control
telemetry
Eliquis
Previosuly on Toprol 100mg BID, now controlled on 50mg BID
Lasix, daily weight, follow Cr and electrolytes
Echo: EF 50-55%, moderate MR, moderate-severe TR with pulmonary HTN
Counseled patient on compliance with meds
will benefit from Jardiance upon d/c
#Pleural effusion
thoracentesis by IRAD: exudate by light criteria, path pending
#Ascites with new liver cirrhosis
insufficient fluid for paracentesis
1 glass of wine daily
recommended cessation
hepatitis panel neg
GI consult outpatient
#DM type 2 with neuropathy
HgBA1c 9.9%
DM CONTACT OFFICER consult
Inxulin SS. Accuchecvks, DM diet
Patient reluctant to insulin - start oral hypoglycemics upon d/c
#KAILEE
IV iron
check stool for occult blood
recommend outpatient colonoscopy/EGD
#Elevated ddimer
CT chest w/o PE
Check US LE for completeness
#Chronic spinal stenosis with chronic ambulatory deficiency
on wheelchair at home
PT/OT - d/c home
was recommended surgery 2 years ago, did not see doctor since, still would not want intervention
Most liekly RLE weakness w/w stenosis
if patient eventually will want surgical intervention - outpatient spinal Sx
DVT ppx eliquis
Full code
I have spent at least 51min reviewing chart, test results, communication with consultants and providing direct patient care. Attempted to call bibi - no response. Called son poor connection. Attempted alternative number [phone] - not
connecting
Anticipated Discharge: > 48 hours
Subjective/Interval History
-
Date of Service: February 03, 2025
Objective Data
-
Labs:
Laboratory Results
02/03/25
05:12
WBC 6.5
Hgb 9.7 L
Hct 32.1 L
Plt Count 234
Sodium 140
Potassium 3.5
Chloride 105
Carbon Dioxide 28
BUN 17
Creatinine 0.9
Glucose 203 H
Calcium 8.7
Total Bilirubin 0.6
AST 17
ALT 12
Alkaline Phosphatase 86
Vital Signs:
Vital Signs
Temp Pulse Resp BP Pulse Ox
98.0 F 90 18 125/67 97
02/03/25 07:47 02/03/25 07:47 02/03/25 07:47 02/03/25 07:47 02/03/25 07:47
I&O
02/02/25 02/03/25 02/04/25
06:59 06:59 06:59
Intake Total 120 / 120 600 / 600
Output Total 2425 / 2425
Balance -2305 / -2305 600 / 600
Review of Systems
-
History Source: Patient
All other systems: Reviewed and negative
Respiratory: Reports Cough
Physical Exam
-
General: No Apparent Distress
Respiratory: Crackles
Cardiac: Regular Rhythm
Neuro: Awake, Alert, Oriented and AO x 3
Psych: Calm
[2025-02-03 11:31] VITALS: BP 119/71
[2025-02-03 11:57] LABS: Glucose - Point of Care 257 mg/dl (70-99)
--- NOTE | 2025-02-03 12:14 | W.PN.UPDATE ---
Update Note
Progress Note Update
As pr family - patient was sent to the hospital since she was barely able to breathe
[2025-02-03] MEDS: KCL 40 MEQ PO (12:31)
[2025-02-03] MEDS: NOVOLOG FLEXPEN-LOW RESISTANCE 3 UNITS SC (12:37)
--- NOTE | 2025-02-03 14:41 | W.PN.CD ---
Today's Communication / Plan
-
increase lasix to 40mg IV bid
Impression / Plan
-
Acute on chronic HFPEF
-EF 50-55%, mod MR, mild AR, mod/severe TR, PASP 50-55
-severe, requiring hospitalization and IV diuresis with close monitoring of labs, tele
-patient had stopped outpatient meds on her own
-increase lasix to 40mg IV bid
A fib, suspected to be persistent
- Toprol XL 50mg bid
-[id number] 5 (age greater than 75, female, heart failure, dm)
- eliquis 5mg bid
.
Pleural effusion.
- s/p thora 950 cc on right
.
Noncompliance. Stopped meds 6 months ago. I discussed importance of medications as it relates to treatment of A-fib and heart failure. Also discussed importance of additional outpatient follow-up.
.
DM -treatment directed by primary team
.
Anemia. Appears to have iron deficiency. Evaluation and treatment as directed by primary team
Physical Exam
Vital Signs/Labs
Vital Signs
Temp Pulse Resp BP Pulse Ox
97.9 F 91 18 119/71 98
02/03/25 11:31 02/03/25 11:31 02/03/25 11:31 02/03/25 11:31 02/03/25 11:31
02/02/25 02/03/25 02/04/25
06:59 06:59 06:59
Actual Weight 97.568 kg 96.661 kg
02/03/25 05:12
02/03/25 05:12
Triglycerides 97 mg/dl (10-149) 02/02/25 05:22
LDL Cholesterol, Calc 81 mg/dl 02/02/25 05:22
VLDL Cholesterol, Calc 19 mg/dl (0-30) 02/02/25 05:22
HDL Cholesterol 42 mg/dl 02/02/25 05:22
02/01/25
13:02
Dgs-D-Nrmwmtcptqa Pept 894
LAB Results
02/01/25
13:02
Troponin I 0.021
Physical Exam
Constitutional: No acute distress and Comfortable
EENT: Moist mucous membranes
Cardiovascular: Rhythm/rate is irregular, Pedal edema present, JVD present and Systolic murmur present
Respiratory: Respiratory effort normal and Lungs clear to auscul.
Neuro/Psych: AO x 3
Data Reviewed
-
Date of Service: February 03, 2025
EKG: Other (Tele: A fib 80s-90s)
Labs: Labs Reviewed by me
[2025-02-03] MEDS: FERRLECIT 110 MG IV (15:22)
[2025-02-03 15:25] VITALS: BP 120/66
[2025-02-03 16:39] LABS: Glucose - Point of Care 180 mg/dl (70-99)
[2025-02-03 19:00] VITALS: BP 118/64
[2025-02-03 21:38] LABS: Glucose - Point of Care 184 mg/dl (70-99)
[2025-02-03 23:00] VITALS: BP 109/63
[2025-02-04 03:00] VITALS: BP 112/64
[2025-02-04 04:08] VITALS: BMI 33.4
[2025-02-04 06:06] LABS: Blood Urea Nitrogen 16 mg/dl (7-17); Calcium 8.6 mg/dl (8.4-10.2); Carbon Dioxide 30 mmol/L (22-30); Chloride 105 mmol/L (98-107); Estimated Creatinine Clearance 49 ml/min; Glucose 177 mg/dl (70-99); Magnesium 1.6 mg/dl (1.6-2.3); Potassium 3.8 mmol/L (3.5-5.1); Sodium 140 mmol/L (135-145); eGFR > 60.00
[2025-02-04] MEDS: KCL 40 MEQ PO (06:31)
[2025-02-04] MEDS: MAGNESIUM SULFATE 50 IV (06:36)
--- NOTE | 2025-02-04 07:10 | PTCARENOTE ---
Oral care was not performed on patient because she stated that she was too tired and it was her preference to do it in the morning.
[2025-02-04 07:20] VITALS: BP 108/63
[2025-02-04 07:55] LABS: Glucose - Point of Care 194 mg/dl (70-99)
[2025-02-04] MEDS: DESENEX/MITRAZOL/ZEASORB 1 APPLIC TOPICAL (08:56)
[2025-02-04] MEDS: TOPROL XL 50 MG PO (08:57)
[2025-02-04] MEDS: JANUVIA 100 MG PO (08:58)
[2025-02-04] MEDS: LASIX 40 MG IV (08:58)
[2025-02-04] MEDS: ELIQUIS 5 MG PO (08:58)
[2025-02-04] MEDS: NOVOLOG FLEXPEN-LOW RESISTANCE 1 UNITS SC (09:02)
[2025-02-04 11:30] VITALS: BP 90/56
--- NOTE | 2025-02-04 11:39 | W.PN.HOSP.TC ---
Today's Communication/Plan
-
dc
Assessment / Plan
Assessment / Plan
89yo F with PMHX of Afib, HFpEF, DM, HTN, HLD, spinal stenosis with chronic back pain and chronic RLE weakness mostly wheelchair bound, came with SOB, found Afib with RVR, large R pleural effusion and ascites with signs of cirrhosis. Patient
stopped to take her meds few months ago by choice since she thought they not helpful. Patient is getting epidural injections as outpatient already. Kept declining insulin in the hospital too. Poor compliance. Cardiology recommended oral lasix,
patient not hypoxic and asymptomatic on the day of D/C. recommended outpatient surgical instruments inspector and GI. medically stable for d/c
A/P:
#Acute on chronic HFpEF exacerbation
#Afib, paroxysmal with RVR
#Pulmonary edema
Cardio consult
Rate/rhythm control
telemetry
Eliquis
Previosuly on Toprol 100mg BID, now controlled on 50mg BID
Lasix, daily weight, follow Cr and electrolytes
Echo: EF 50-55%, moderate MR, moderate-severe TR with pulmonary HTN
Counseled patient on compliance with meds
will benefit from Jardiance upon d/c
#Pleural effusion
thoracentesis by IRAD: exudate by light criteria, path pending
#Ascites with new liver cirrhosis
insufficient fluid for paracentesis
1 glass of wine daily
recommended cessation
hepatitis panel neg
GI consult outpatient
#DM type 2 with neuropathy
HgBA1c 9.9%
DM FISHER EEL consult
Inxulin SS. Accuchecvks, DM diet
Patient reluctant to insulin - start oral hypoglycemics upon d/c
#KAILEE
IV iron
check stool for occult blood
recommend outpatient colonoscopy/EGD
#Elevated ddimer
CT chest w/o PE
US LE neg for DVT
#Chronic spinal stenosis with chronic ambulatory deficiency
on wheelchair at home
PT/OT - d/c home
was recommended surgery 2 years ago, did not see doctor since, still would not want intervention
Most likely RLE weakness w/w stenosis
if patient eventually will want surgical intervention - outpatient spinal Sx
DVT ppx eliquis
Full code
I have spent at least 51min reviewing chart, test results, communication with consultants and providing direct patient care.
Anticipated Discharge: Today
Subjective/Interval History
-
Date of Service: February 04, 2025
Objective Data
-
Labs:
Laboratory Results
02/04/25
05:22
Sodium 140
Potassium 3.8
Chloride 105
Carbon Dioxide 30
BUN 16
Creatinine 0.9
Glucose 177 H
Calcium 8.6
Vital Signs:
Vital Signs
Temp Pulse Resp BP Pulse Ox
98.2 F 82 16 108/63 94
02/04/25 07:20 02/04/25 08:57 02/04/25 07:20 02/04/25 08:57 02/04/25 07:20
I&O
02/03/25 02/04/25 02/05/25
06:59 06:59 06:59
Intake Total 600 / 600 840 / 840 480 / 480
Balance 600 / 600 840 / 840 480 / 480
Review of Systems
-
History Source: Patient
EENT: Reports No Symptoms Reported
Physical Exam
-
General: No Apparent Distress and Comfortable
Respiratory: Clear to Auscultation
GI: Soft, Nontender and Nondistended
Musculoskeletal: No Clubbing, No Cyanosis and No Edema
Psych: Calm
--- NOTE | 2025-02-04 12:07 | W.DCSUMMARY ---
Discharge Summary
Discharge Data
Date of Admission: 02/01/25
Date of Discharge: 02/04/25
-
Pending Results: No
Hospital Course
89yo F with PMHX of Afib, HFpEF, DM, HTN, HLD, spinal stenosis with chronic back pain and chronic RLE weakness mostly wheelchair bound, came with SOB, found Afib with RVR, large R pleural effusion and ascites with signs of cirrhosis. Patient
stopped to take her meds few months ago by choice since she thought they not helpful. Patient is getting epidural injections as outpatient already. Kept declining insulin in the hospital too. Poor compliance. Cardiology recommended oral lasix,
patient not hypoxic and asymptomatic on the day of D/C. recommended outpatient radon inspector and GI. medically stable for d/c. Stools are brown over hospital stay, FOBT ordered, but for some reason never done
I have spent at least 51min reviewing chart, test results, communication with consultants and providing direct patient care.
Patient was managed for:
#Acute on chronic HFpEF exacerbation
#Afib, paroxysmal with RVR
#Pulmonary edema
#Pleural effusion
#Ascites with new liver cirrhosis
#DM type 2 with neuropathy
#KAILEE
#Elevated ddimer
#Chronic spinal stenosis with chronic ambulatory deficiency
Discharge Plan
-
Patient Disposition: Home (Routine Discharge)
Discharge Diagnosis/Procedures: CHF
Diet: Diabetic, Carb Controlled
Instructions: *PCP/Other Exchange Architect Heart Failure Instructions
Referrals:
Khris Morales MD [Active, Cardiology] - in less than 1 week
Alexa Ballard MD [Family Provider, Family Practice]
Emelia Holland DO [Active, Gastroenterology] - in two to four weeks
Referral Note: colonoscopy
Prescriptions:
New
metformin 500 mg tablet
500 mg PO BID Qty: 60 0RF
Jardiance 10 mg tablet
10 mg PO DAILY Qty: 30 0RF
furosemide [Lasix] 40 mg tablet
40 mg PO DAILY Qty: 30 0RF
metoprolol succinate 50 mg Tablet Extended Release 24 Hr
50 mg PO BID Qty: 60 0RF
Eliquis 5 mg Tablet
5 mg PO BID Qty: 60 0RF
ferrous sulfate 325 mg (65 mg iron) tablet
325 mg PO DAILY Qty: 30 0RF
bisacodyl 5 mg tablet,delayed release (DR/EC)
10 mg PO DAILY Qty: 30 0RF
Continued
latanoprost 0.005 % drops
1 drp BOTH EYES HS
Discontinued
naproxen sodium [Aleve] 220 mg Tablet
440 mg PO DAILYPRN PRN (Reason: mild pain)
Patient Comments:
05/17/2023: Pt either takes in the morning, or in the afternoon depending how her pain is.
Discharge Orders:
Discharge Patient (As Directed); Ordered 02/04/25
Ordered By: Tuan Vela
Discharge Date and Time
Print Language: BENGALI
--- NOTE | 2025-02-04 12:07 | W.PN.CD ---
Today's Communication / Plan
-
transition to lasix 40mg PO daily
continue eliquis 5mg bid, Toprol XL 50mg bid
we will call patient for follow up
please call us with additional questions
Impression / Plan
-
Acute on chronic HFPEF, improved s/p IV lasix
-EF 50-55%, mod MR, mild AR, mod/severe TR, PASP 50-55
-patient had stopped outpatient meds on her own
-transition to lasix 40mg PO daily
A fib, suspected to be persistent
- Toprol XL 50mg bid
-[id number] 5 (age greater than 75, female, heart failure, dm)
- eliquis 5mg bid
.
Pleural effusion.
- s/p thora 950 cc on right
.
Noncompliance. Stopped meds 6 months ago. I discussed importance of medications as it relates to treatment of A-fib and heart failure. Also discussed importance of additional outpatient follow-up.
.
DM -treatment directed by primary team
.
Anemia. Appears to have iron deficiency. Evaluation and treatment as directed by primary team
Physical Exam
Vital Signs/Labs
Vital Signs
Temp Pulse Resp BP Pulse Ox
98.0 F 87 16 90/56 94
02/04/25 11:30 02/04/25 11:30 02/04/25 11:30 02/04/25 11:30 02/04/25 11:30
02/03/25 02/04/25 02/05/25
06:59 06:59 06:59
Actual Weight 96.661 kg 91.036 kg
02/03/25 05:12
02/04/25 05:22
Magnesium 1.6 mg/dl (1.6-2.3) 02/04/25 05:22
Triglycerides 97 mg/dl (10-149) 02/02/25 05:22
LDL Cholesterol, Calc 81 mg/dl 02/02/25 05:22
VLDL Cholesterol, Calc 19 mg/dl (0-30) 02/02/25 05:22
HDL Cholesterol 42 mg/dl 02/02/25 05:22
02/01/25
13:02
Jmj-I-Gsecqcdnvmh Pept 894
LAB Results
02/01/25
13:02
Troponin I 0.021
Physical Exam
Constitutional: No acute distress and Comfortable
EENT: Moist mucous membranes
Cardiovascular: Rhythm/rate is irregular, Pedal edema present, JVD present and Systolic murmur present
Respiratory: Respiratory effort normal and Lungs clear to auscul.
Neuro/Psych: AO x 3
Data Reviewed
-
Date of Service: February 04, 2025
EKG: Other (Tele: A )
Labs: Labs Reviewed by me
[2025-02-04 12:15] LABS: Glucose - Point of Care 238 mg/dl (70-99)
[2025-02-04] MEDS: NOVOLOG FLEXPEN-LOW RESISTANCE 2 UNITS SC (12:36)
--- NOTE | 2025-02-04 13:13 | CM ---
MD entered order for discharge.
Spoke with patient in room offered VN .
Pt declined need for VN
IMM reviewed with patient . She agreed with discharge today.
Spoke with Reji he said he will drive her home.
PLAN Home no needs
[2025-02-04 14:32] LABS: Glucose - Point of Care 227 mg/dl (70-99)
[2025-02-04 14:33] VITALS: BP 96/56
[2025-02-04] MEDS: FERRLECIT IV (15:27)
--- NOTE | 2025-02-06 10:38 | W.HF.CON ---
Heart Failure
- LV Function
Left ventricular function study result: LV Ejection fraction >/= 50%
Ejection Fraction Percentage: 50-55
- ARNI
Patient already on ARNI: No
Heart Failure ARNI Not Indicated: LV Ejection Fraction >/= 40%
- ACEI/ARB
Patient already on ACEI/ARB: No
Heart Failure ACEI/ARB Not Indicated: LV Ejection Fraction > 40%
- Beta Paola
Patient already on Evidence Based Beta Paola: Yes
- Mineralocorticord Receptor Antagonist
Patient already on MRA: No
Heart Failure MRA Not Indicated: LV Ejection Fraction > 40%
- SGLT-2 Inhibitor
Patient already on SGLT-2 Inhibitor: Yes
- Afib Anticoagulation
Patient already on Anticoagulation for Afib: Yes
- NYHA CHF Classification
NYHA CHF Classification Level: Class III - Symptoms w/ min exertion, interferes w/ nml daily activity
- ACC/AHA Stage
ACC/AHA Stage: Stage C: Symptomatic Heart Failure
== END 2025-02-04 16:09 | disposition home or self-care (01) | DRG 291 ==
LOC: 3 WEST ACU 16:18
PROVIDERS: Nurse Practitioner Family; Radiology Diagnostic Radiology; ADMITTING PHYSICIAN Hospitalist; ATTENDING PHYSICIAN Internal Medicine; EMERGENCY PHYSICIAN Emergency Medicine; FAMILY PHYSICIAN Family Medicine; OTHER PHYSICIAN Internal Medicine Cardiovascular Disease
PROC: 0W993ZZ Drainage of Right Pleural Cavity, Percutaneous Approach (ICD-10-PCS; 2025-02-02)
PROC: 0W9G3ZZ Drainage of Peritoneal Cavity, Percutaneous Approach (ICD-10-PCS; 2025-02-02)
DX: I11.0 Hypertensive heart disease with heart failure (principal); I50.33 Acute on chronic diastolic (congestive) heart failure; I48.21 Permanent atrial fibrillation; R18.8 Other ascites; Z11.52 Encounter for screening for COVID-19; E78.5 Hyperlipidemia, unspecified; M48.061 Spinal stenosis, lumbar region without neurogenic claudication; E11.40 Type 2 diabetes mellitus with diabetic neuropathy, unspecified; Z79.01 Long term (current) use of anticoagulants; Z91.148 Patient's other noncompliance with medication regimen for other reason; Z99.3 Dependence on wheelchair
CPT/HCPCS: 32555; 49083; 71045; 71046; 71275; 76705; 80048; 80053; 80061; 82150; 82728; 82945; 82962; 83036; 83540; 83550; 83615; 83735; 83880; 83986; 84100; 84132; 84157; 84443; 84484; 85025; 85027; 85379; 86704; 86706; 86803; 87015; 87070; 87205; 87340; 87502; 87811; 88112; 88305; 89051; 93005; 93306; 93970; 96374; 96375; 96376; 97162; 97167; 99291; J2916; Q9967

== ENCOUNTER → 2025-02-27 15:07 | Outpatient (REF) | payer OTHER, SELFPAY | LOC: HWRAD 15:07 | PROVIDERS: ATTENDING PHYSICIAN Nurse Practitioner Family | DX: M25.512 Pain in left shoulder (principal) | CPT/HCPCS: 73030 ==